=== PATIENT | male | born 2000 | race Caucasian/White ===

== ENCOUNTER 2023-06-12 11:35 | Emergency (ER) | payer MEDICAID ==
[2023-06-12 11:49] VITALS: BP 113/99; O2SAT 97
--- NOTE | 2023-06-12 12:08 | ED Physician Documentation ---
PD HPI LOWER EXT INJURY - Stated complaint Stated Complaint: FOOT INJ - Chief complaint Chief Complaint: General - History obtained from History obtained from: Patient - Additional information Additional information: Patient is a 23-year-old male presenting for evaluation of a puncture wound to his right foot that occurred just prior to arrival. Patient externally stepped on a nail that was in a piece of wood on his deck. It went through his shoe. He is not diabetic or otherwise immunocompromise. He is unsure of his last tetanus. He does not take any medications. He denies concerns for foreign body. Review of Systems Skin: reports: Laceration (s) PD PAST MEDICAL HISTORY - Past Medical History Past Medical History: No Cardiovascular: None Respiratory: None Neuro: None Endocrine/Autoimmune: None GI: None : None HEENT: None Psych: None Musculoskeletal: None Derm: None - Past Surgical History Past Surgical History: No - Present Medications Home Medications: Ambulatory Orders Medication Instructions Recorded Confirmed No Known Home Medications 04/21/15 06/12/23 - Allergies Allergies/Adverse Reactions: Allergies Allergy/AdvReac Type Severity Reaction Status Date / Time No Known Drug Allergies Allergy Verified 06/12/23 11:43 - Social History Does the pt smoke?: No Smoking Status: Never smoker Does the pt drink ETOH?: No Does the pt have substance abuse?: No - Immunizations Immunizations are current?: No Immunizations: TDAP >10years/unknown - POLST Patient has POLST: No PD ED PE NORMAL - General General: Alert and oriented X 3, No acute distress, Well developed/nourished - HEENT HEENT: Atraumatic - Cardiac Cardiac: Strong equal pulses - Respiratory Respiratory: No respiratory distress - Derm Derm: Warm and dry - Extremities Extremities: Other (Small puncture wound to sole of right foot, no tenderness, no redness, no swelling, no abnormal drainage) - Neuro Neuro: Alert and oriented X 3, No motor deficit, No sensory deficit, Normal speech Results - Vitals Vitals: Vital Signs - 24 hr 06/12/23 11:44 Temperature 36.6 C Heart Rate 106 H Respiratory 16 Rate Blood Pressure 113/99 H O2 Saturation 97 Oxygen O2 Source Room air PD Medical Decision Making - ED course ED course: Patient is a 22-year-old male with a puncture wound to the sole of his foot. He is not diabetic or immunocompromised. No tenderness and patient declines x-ray to ensure there is no foreign body. No signs of infection. Will hold on antibiotics at this time. Patient's tetanus was updated. Counseled on continued wound care as well as concerning symptoms to return for. Departure - Departure Disposition: 01 Home, Self Care Clinical Impression: Puncture wound of right foot Condition: Stable Instructions: ED Wound Puncture General Comments: You were given a tetanus booster today. Continue to keep the wound clean and dry. You can wash the area with soapy water. At this time I do not see signs of a retained foreign body or signs of infection regarding your puncture wound. However if you develop pain, redness, swelling, abnormal drainage then please return to the emergency department. Forms: PCP List Discharge Date/Time: 06/12/23 12:26
[2023-06-12] MEDS: TETANUS/DIPHTHERIA/PERTUSSIS 0.5 ML SYRINGE IM ONE (12:22)
== END 2023-06-12 12:26 | disposition home or self-care (01) ==
LOC: ED 11:35
DX: S91.331A Puncture wound without foreign body, right foot, initial encounter (principal); X58.XXXA Exposure to other specified factors, initial encounter; Z23 Encounter for immunization
CPT/HCPCS: 90471; 99282; 99283

== ENCOUNTER 2023-09-13 17:27 | Emergency (ER) | payer SELFPAY ==
[2023-09-13 17:40] VITALS: BP 124/86; O2SAT 99
--- NOTE | 2023-09-13 19:17 | ED Physician Documentation ---
History of Present Illness - Stated complaint Stated Complaint: NECK PX - Chief complaint Chief Complaint: General - Additonal information Additional information: 23 yo male with hx of kidney stones a couple years ago present to the ER with r ight neck pain that started this AM suddenly after he woke up. No fevers or chills, no nausea or vomiting. Pain when moving head to the right. He does have full range of motion but does say that it hurts mostly to move the head to the right especially with the ear to shoulder range of motion. No recent travel PD PAST MEDICAL HISTORY - Past Medical History Cardiovascular: None Respiratory: None Neuro: None Endocrine/Autoimmune: None GI: None : None HEENT: None Psych: None Musculoskeletal: None Derm: None - Past Surgical History Past Surgical History: No - Present Medications Home Medications: Ambulatory Orders Medication Instructions Recorded Confirmed No Known Home Medications 04/21/15 09/13/23 - Allergies Allergies/Adverse Reactions: Allergies Allergy/AdvReac Type Severity Reaction Status Date / Time No Known Drug Allergies Allergy Verified 09/13/23 17:36 - Social History Does the pt smoke?: No Smoking Status: Never smoker Does the pt drink ETOH?: No Does the pt have substance abuse?: No - Immunizations Immunizations are current?: No Immunizations: TDAP >10years/unknown - POLST Patient has POLST: No PD ED PE NORMAL - Vitals Vital signs reviewed: Yes - General General: Alert and oriented X 3, No acute distress, Well developed/nourished - HEENT HEENT: Atraumatic, PERRL PD ED PE EXPANDED - Neck Neck: Supple w/out meningeal sx, Soft tissue TTP. No: Stiff neck, Brudzinki's, Kernig's, JVD present, Adenopathy, No tenderness, Bony TTP, Limited ROM Results - Vitals Vitals: Vital Signs - 24 hr 09/13/23 17:32 Temperature 36.9 C Heart Rate 84 Respiratory 16 Rate Blood Pressure 124/86 H O2 Saturation 99 Oxygen O2 Source Room air PD Medical Decision Making - ED course ED course: 23-year-old presents emergency department for right neck muscle tenderness. Patient has not taken any Tylenol ibuprofen since he is for started noticing the pain. He has had no recent fevers or chills no signs of meningitis negative Brudzinski and Kernig's sign no cervical adenopathy. Over the patient is experiencing musculoskeletal tension in the right area of his neck. He is given a Toradol shot here in the emergency department as well as 1000 mg of Tylenol and reports symptoms did significantly improve. He is told to continue with Aleve and Tylenol at home to continue to do some gentle stretching range of motion exercises to his neck and to follow-up with a primary care provider who he does not currently have establish care with. He is also told to pursue possible physical therapy if no alleviation of symptoms return precautions given safer discharge at this time all questions answered. Departure - Departure Disposition: Home, Self Care Clinical Impression: Neck muscle strain Instructions: Head Tilt, ED Spasm Neck No Injury Comments: Thank you for trusting us with your care I believe you are experiencing neck pain from a muscle knot. Go home take 500mg Aleve every 12 hours and 1000mg of Tylenol every 8 hours for pain and discomfort. Apply ice 20 minutes on one hour off and continue to do some gentle range of of motion stretching and exercising. You can also buy over the counter Lidocaine patches to help with pain. I would strongly encourage you to establish care with a PCP. If no improvement of symptoms in the next couple days with the above plan or any worsening symptoms please come back to the ER. Forms: PCP List Discharge Date/Time: 09/13/23 19:58
[2023-09-13] MEDS: ACETAMINOPHEN 500 MG TABLET PO STA (19:25)
[2023-09-13] MEDS: KETOROLAC 30 MG/ML VIAL IM STA (19:27)
== END 2023-09-13 19:58 | disposition home or self-care (01) ==
LOC: ED 17:27
DX: S16.1XXA Strain of muscle, fascia and tendon at neck level, initial encounter (principal); X58.XXXA Exposure to other specified factors, initial encounter
CPT/HCPCS: 96372; 99283; A9270